=== PATIENT | male | born 1995 | race Caucasian/White ===

== ENCOUNTER 2017-03-12 23:19 | Emergency (ER) | payer BC ==
[~2017-03-12] VITALS: Ht 185.4 cm; Wt 80.3 kg
[2017-03-12 23:24] VITALS: BP 140/63; PULSE 80; RESP 20; TEMP 99.6; O2SAT 100
[2017-03-12 23:50] VITALS: BP 129/70; PULSE 77; RESP 18; O2SAT 99
--- NOTE | 2017-03-12 23:56 | PD ---
HPI Chief Complaint: Fall Time Seen by Provider: 23:53 Travel History International Travel<30 days: No Contact w/Intl Traveler<30days: No Traveled to known affect area: No History of Present Illness HPI 21-year-old male presents to the emergency department by private transportation with injury to his left wrist. Patient reports just prior to arrival to the emergency department while dancing on a chair the chair gave way on him causing him to lose his balance and fell to the ground. Patient initially had some soreness of his left foot but primarily injured his left wrist. Patient has noted some swelling to the left wrist. Patient states he did not hit his head did not have loss of consciousness did not injure his neck did not injure his back does not report any chest pain rib pain shortness of breath abdominal pain pelvic pain or other injury. Patient states the soreness of his left foot has resolved and he has not noticed any swelling or discomfort of the foot with ambulation. Patient is right-handed. Patient has right wrist. Patient denies any forearm pain and elbow pain upper arm pain or shoulder pain. Patient's had no numbness tingling or weakness. The patient rates his left wrist pain 10 over 10 in intensity. Patient has removed his person ring from his left hand and wrist. Patient states attempted movement of the wrist causes increased pain and ice application provide some relief. PFSH Past Medical History Narrative Medical Past history negative surgical history; alcohol use: Nursing notes reviewed Social History Tobacco Use: Yes Allergies-Medications (Allergen,Severity, Reaction): Coded Allergies: Penicillins (Verified Allergy, Severe, Rash, 03/12/17) azithromycin (Verified Allergy, Severe, Rash, 03/12/17) Reported Meds & Prescriptions Reported Meds & Active Scripts Active Ibuprofen 800 Mg Tab 800 Mg PO Q8H PRN Percocet (Oxycodone-Acetaminophen) 5-325 mg Tab 1 Tab PO Q6H PRN Review of Systems Except as stated in HPI: all other systems reviewed are Neg Physical Exam Narrative GENERAL: Well-developed well-nourished male in no acute distress no respiratory distress; GCS 15 SKIN: Warm and dry. HEAD: Normocephalic. Atraumatic scalp soft tissue swelling tissue swelling or abrasion or laceration no bony abnormality. EYES: No scleral icterus. No injection or drainage. Extraocular muscles intact motor and reactive to light. NECK: Supple, trachea midline. No JVD or lymphadenopathy. No midline tenderness to direct palpation along the cervical spine no bony step-off. CARDIOVASCULAR: Regular rate and rhythm without murmurs, gallops, or rubs. RESPIRATORY: Breath sounds equal bilaterally. No accessory muscle use. GASTROINTESTINAL: Abdomen soft, non-tender, nondistended. MUSCULOSKELETAL: No cyanosis, or edema. Attention left wrist positive soft tissue swelling to the dorsum of the left wrist with decreased range of motion on flexion extension of the wrist patient has intact capillary refill less than 2 seconds per digit intact sensation to light touch patient states he cannot perform thumb apposition secondary to pain. BACK: Nontender without obvious deformity. No CVA tenderness. Data Data Last Documented VS Vital Signs Date Time Temp Pulse Resp B/P (MAP) Pulse Ox O2 Delivery O2 Flow Rate FiO2 03/13/17 01:07 71 18 131/69 (89) 98 03/12/17 23:50 Room Air 03/12/17 23:24 99.6 Orders Orders Wrist, Complete ([id number]) (03/12/17 ) Splint Or Brace Apply/Monitor (03/13/17 00:25) Support Splint (03/13/17 00:25) Ice/Cold Pack (03/13/17 00:25) Oxycodone-Acetamin 5-325 Mg (Percocet (03/13/17 00:45) Ibuprofen (Motrin) (03/13/17 00:45) Ed Discharge Order (03/13/17 00:43) MDM Medical Decision Making Medical Screen Exam Complete: Yes Emergency Medical Condition: Yes Medical Record Reviewed: Yes Interpretation(s) left wrist xr: FINDINGS: 3 views of left wrist. There is a fracture of the distal radius. Horizontal component of the fracture is seen 7 mm proximal to the radiocarpal joint. Vertical component of the fracture extends through the far medial aspect of the distal radius into the radiocarpal joint with 2 mm displacement at the articular cortex. Alignment on the lateral view is neutral. Ulnar styloid fracture also noted, nondisplaced. CONCLUSION: 1. Mildly comminuted fracture of the distal radius fracture with medial vertical component extending into the radiocarpal joint with 2 mm displacement. 2. Nondisplaced ulnar styloid fracture. Candelario Galvan MD on March 13, 2017 at 0:31 Board Certified Radiologist. This report was verified electronically. Differential Diagnosis Sprain strain fracture subluxation dislocation hematoma Narrative Course ice pack applied; jewelry removed; imaging study ordered Imaging study consistent with distal radius and on her styloid fracture; sugar tong Perez splint applied along with sling; patient administered weight-based ibuprofen and Percocet for pain Patient is encouraged to follow-up with orthopedic surgeon call office Tuesday schedule follow-up appointment Diagnosis Primary Impression: Left wrist fracture Qualified Codes: S62.102A - Fracture of unspecified carpal bone, left wrist, initial encounter for closed fracture Referrals: Alexandr Peterson MD 2 days Call office to schedule appointment Orthopedist 2 days Call office to schedule appointment Patient Instructions: General Instructions Additional Instructions: Take pain medication as prescribed as needed Take ibuprofen as prescribed as needed for pain Keep splint in place Follow-up with orthopedist surgeon call office on Tuesday to schedule follow-up appointment Return to the emergency department for pain swelling or any concerns Med/Other Pt SpecificInfo: Prescription(s) given Scripts Ibuprofen (Ibuprofen) 800 Mg Tab 800 MG PO Q8H Y for PAIN GREATER THAN 5, #12 TAB 0 Refills Prov: Marlyn Mcpherson MD 03/13/17 Oxycodone-Acetaminophen (Percocet) 5-325 mg Tab 1 TAB PO Q6H Y for PAIN, #12 TAB 0 Refills Prov: Marlyn Mcpherson MD 03/13/17 Disposition: 01 DISCHARGE HOME Condition: Stable Marlyn Mcpherson MD Mar 12, 2017 23:56
--- NOTE | 2017-03-13 00:35 | RADRPT ---
EXAM DATE/TIME: 03/12/2017 23:52 [facility] COMPARISON: No previous studies available for comparison. INDICATIONS : Pain and swelling due to fall. MEDICAL HISTORY : None. SURGICAL HISTORY : None. ENCOUNTER: Initial ACUITY: 1 day PAIN SCORE: 10/10 LOCATION: Left upper extremity wrist, posterior. FINDINGS: 3 views of left wrist. There is a fracture of the distal radius. Horizontal component of the fracture is seen 7 mm proximal to the radiocarpal joint. Vertical component of the fracture extends through t he far medial aspect of the distal radius into the radiocarpal joint with 2 mm displacement at the ar ticular cortex. Alignment on the lateral view is neutral. Ulnar styloid fracture also noted, nondispl aced. CONCLUSION: 1. Mildly comminuted fracture of the distal radius fracture with medial vertical component extending into the radiocarpal joint with 2 mm displacement. 2. Nondisplaced ulnar styloid fracture. Candelario Galvan MD on March 13, 2017 at 0:31 Board Certified Radiologist. This report was verified electronically.
[2017-03-13] MEDS ORDERED: PERC5TAB12 PO (00:40)
[2017-03-13] MEDS ORDERED: IBUP1TAB7 PO (00:40)
[2017-03-13] MEDS ORDERED: IBUPROFEN 800 MG TAB PO ONE (00:45)
[2017-03-13] MEDS ORDERED: oxyCODONE/ACETAMINOPHEN 5 MG/325 MG TAB PO ONE (00:45)
[2017-03-13 01:07] VITALS: BP 131/69
== END 2017-03-13 01:08 | disposition home or self-care (01) ==
LOC: PHED 23:19
DX: S52.592A Other fractures of lower end of left radius, initial encounter for closed fracture (principal); S52.615A Nondisplaced fracture of left ulna styloid process, initial encounter for closed fracture; Z72.0 Tobacco use; W07.XXXA Fall from chair, initial encounter; Y93.41 Activity, dancing
CPT/HCPCS: 29105; 73110